=== PATIENT | male | born 1965 | race Caucasian/White ===

== ENCOUNTER → 2017-09-12 | Outpatient (CLI) | payer OTHER ==
--- NOTE | ~2017-09-12 | 2DMMODE ---
[facility] [address] [place] [address] 2 D/M-MODE ECHOCARDIOGRAM Name: IGNACIA RUEDA Room #: REG [facility]#: [id number] Admission: 09/12/17 Attend Phys: Howie Hernadez Discharge: Date of : 63 Date of Service: 09/12/17 1138 Report #: [id number] THIS REPORT FOR: //name// APPROVED REPORT Study performed: 09/12/2017 10:27:20 EXAM: Comprehensive 2D, Doppler, and color-flow Echocardiogram Patient Location: Out-Patient Room #: Echo lab 1 Status: routine BSA: 2.22 HR: 89 bpm BP: 143/91 mmHg Rhythm: NSR Other Information Study Quality: Adequate Indications Dyspnea Chest Pain 2D Dimensions RVDd: 43.11 mm LVEF(%): 52.85 (>50%) IVSd: 14.21 (7-11mm) LVOT Diam: 24.30 (18-24mm) LVDd: 38.60 mm PWd: 12.93 (7-11mm) Ascending Ao: 36.66 (22-36mm) LVDs: 28.30 (25-40mm) Aortic Root: 34.01 mm IVC: 19.00 mm [place]'s LVEF: 52.85 % Volumes Left Atrial Volume (Systole) Single Plane 4CH: 33.17 mL Single Plane 2CH: 33.14 mL LA ESV Index: 17.00 mL/m2 Aortic Valve AoV Peak Amol.: 1.23 m/s AO Peak Gr.: 6.07 mmHg LVOT Max P.79 mmHg LVOT Max V: 1.30 m/s AMBER Vmax: 4.90 cm2 Mitral Valve E/A Ratio: 1.3 [facility] [address] [address] 2 D/M-MODE ECHOCARDIOGRAM Name: IGNACIA RUEDA Room #: [facility]#: [id number] Admission: 09/12/17 Attend Phys: Howie Hernadez Discharge: Date of : 63 Date of Service: 09/12/17 1138 Report #: [id number] MV Decel. Time: 192.66 ms MV E Max Amol.: 0.71 m/s MV A Amol.: 0.55 m/s MV PHT: 55.87 ms IVRT: 96.89 ms Pulmonary Valve PV Peak Amol.: 0.98 m/s PV Peak Gr.: 3.86 mmHg Pulmonary Vein P Vein S: 0.59 m/s P Vein A: 0.29 m/s P Vein D: 0.33 m/s P Vein A Dur.: 115.3 msec P Vein S/D Ratio: 1.79 Left Ventricle The left ventricle is normal size. There is normal LV segmental wall motion. Mild concentric left ventricular hypertrophy. The left ventricular systolic function is normal. The left ventricular ejection fraction is within the normal range. LVEF is 55-60%. The left ventricular diastolic function is normal. Right Ventricle The right ventricle is normal size. The right ventricular systolic function is normal. Atria The left atrium size is normal. Right atrium is at the upper limits of normal. Aortic Valve The aortic valve is normal in structure. Aortic valve is calcified. Trace aortic regurgitation. There is no aortic valvular stenosis. Mitral Valve The mitral valve is normal in structure. There is no mitral valve regurgitation noted. No evidence of mitral valve stenosis. Tricuspid Valve The tricuspid valve is normal in structure. There is no tricuspid valve regurgitation noted. Pulmonic Valve The pulmonary valve is normal in structure. There is no pulmonic valvular regurgitation. [address] [address] 2 D/M-MODE ECHOCARDIOGRAM Name: IGNACIA RUEDA Room #: REG [facility]#: [id number] Admission: 09/12/17 Attend Phys: Howie Hernadez Discharge: Date of : 63 Date of Service: 09/12/17 1138 Report #: [id number] Great Vessels The aortic root is normal in size. The ascending aorta is borderline dilated. IVC is normal in size and collapses >50% with inspiration. Pericardium There is no pericardial effusion. <Conclusion> The left ventricle is normal size. LVEF is 55-60%. The aortic valve is normal in structure. Aortic valve is calcified. Trace aortic regurgitation. The mitral valve is normal in structure. The tricuspid valve is normal in structure. There is no tricuspid valve regurgitation noted. The pulmonary valve is normal in structure. The ascending aorta is borderline dilated. There is no pericardial effusion. <ELECTRONICALLY SIGNED> By: Howie Tavares MD 09/12/17 1138 1138 1138 Howie Tavares MD /INF
== END ==
LOC: NUC 07:50
DX: I70.0 Atherosclerosis of aorta (principal); E78.5 Hyperlipidemia, unspecified; Z87.09 Personal history of other diseases of the respiratory system